=== PATIENT | female | born 1965 | race Caucasian/White ===

== ENCOUNTER 2023-01-07 06:19 | Outpatient (CLI) | payer BC ==
[~2023-01-07] VITALS: Ht 165.1 cm; Wt 166.5 kg
[2023-01-07] MEDS ORDERED: CALC1TAB PO (17:07)
[2023-01-07] MEDS ORDERED: INSU100V6 SQ (17:07)
[2023-01-07] MEDS ORDERED: ZALE10CA PO (17:07)
[2023-01-07] MEDS ORDERED: ASPI-808 PO (17:07)
[2023-01-07] MEDS ORDERED: MELA10CA2 PO (17:07)
[2023-01-07] MEDS ORDERED: KRIL500C PO (17:07)
[2023-01-07] MEDS ORDERED: ROPI12TA2 PO (17:07)
[2023-01-07] MEDS ORDERED: FEXO1TAB43 PO (17:07)
[2023-01-07] MEDS ORDERED: NF-LT10/20 PO (17:07)
[2023-01-07] MEDS ORDERED: EZET10TA17 PO (17:07)
[2023-01-07] MEDS ORDERED: SEMA2PEN SQ (17:07)
[2023-01-07] MEDS ORDERED: CRAN200C PO (17:07)
== END 2023-01-07 17:20 | disposition home or self-care (01) ==
LOC: PREOP 06:19
PROVIDERS: ATTEND Surgery
DX: Z01.818 Encounter for other preprocedural examination (principal)

== ENCOUNTER 2023-01-12 08:59 | Day surgery (SDC) | payer BC ==
[~2023-01-12] VITALS: Ht 165.1 cm; Wt 166.5 kg
[~2023-01-12 08:59] MED LIST: ASPI-808 PO; CALC1TAB PO; CRAN200C PO; EZET10TA17 PO; FEXO1TAB43 PO; INSU100V6 SQ; KRIL500C PO; MELA10CA2 PO; NF-LT10/20 PO; ROPI12TA2 PO; SEMA2PEN SQ; ZALE10CA PO
[2023-01-12] MEDS ORDERED: LACTATED RINGERS 1,000 ML IV STA (09:03)
[2023-01-12] MEDS ORDERED: HURRICAINE EXT TUBE (BENZOCAINE) XX PRN (09:15)
[2023-01-12 09:34] VITALS: BP 175/107
--- NOTE | 2023-01-12 10:15 | Progress Note-Pre Operative ---
Pre-Operative Progress Note Date of Available H&P: Dec 30, 2022 Date H&P Reviewed: Jan 12, 2023 Time H&P Reviewed: 10:12 History & Physical: H&P Reviewed, Patient Examed, No changes noted Pre-Operative Diagnosis: Dysphagia, Hx of Polyp KAIDEN CHAMBERS DO Jan 12, 2023 10:15
[2023-01-12] MEDS ORDERED: MIDAZOLAM INJ 2 MG/2 ML VIAL ONE (11:02)
[2023-01-12] MEDS ORDERED: PROPOFOL INJECTION 50 ML IV ONE (11:02)
[2023-01-12] MEDS ORDERED: KETAMINE 50 MG/5 ML SYRINGE ONE (11:02)
[2023-01-12 11:45] VITALS: BP 170/111
--- NOTE | 2023-01-12 11:45 | Progress Note-Post Operative ---
Post-Operative Progess Note Surgeon (s)/Cutter Tender (s) Surgeon KAIDEN CHAMBERS DO Cutter Tender: Connor Landrum, MSIII Pre-Operative Diagnosis Dysphagia, Hx of Polyp Post-Operative Diagnosis Gastritis Hiatal Hernia Polyps Diverticula int hemorrhoids Procedure & Operative Findings Date of Procedure 01/12/23 Procedure Performed/Findings EGD with biopsy Colonoscopy with snare Colonoscopy with cold biopsy PROCEDURE NOTE: After informed consent was obtained, the patient was brought to the endoscopy suite, placed in bed in left lateral decubitus position. She was administered IV sedation by the PERSONAL DRIVER who then monitored vitals the entire time, heart rate, blood pressure and pulse ox and the scope was inserted down the mouth through the esophagus into the stomach. On the way down, noted some mild esophagitis, took a picture, pushed into the stomach, pushed past the antrum into the duodenum. Duodenum looked good. Pulled back and did a biopsy of antrum, then retroflexed the scope, saw hiatal hernia, took a picture of this and then pulled the scope into the GE junction, took another picture of the hiatal hernia and then did a biopsy of the GE junction. Pushed the scope back into the stomach, suctioned all the air out of the stomach. At this point pulled the scope up the esophagus and out the mouth. Switched camera, switched gloves, went down below and started the colonoscopy. Pushed all the way to about 160 cm and pushed into the cecum, took a picture of appendiceal orifice and noted the ileocecal valve. Then slowly withdrew the scope insufflating to look circumferentially at the beth starting in the cecum, up the ascending colon to the hepatic flexure, then down the transverse colon to the splenic flexure and into the descending colon. Here I found a small flat polyp and elected to remove it with cold biopsy. Continued down into the sigmoid, where I found another flat polyp; removed this with cold biopsy. In the rectum I found three larger polyps and wanted to remove them completely, used snare to remove all of them. Finally, into the rectal vault and retroflexed the scope. Took a picture of the internal hemorrhoids. The patient tolerated the procedure and she recovered in the endoscopy suite. Recommended for repeat colonoscopy in 5 years Anesthesia Type IV sedaion by PERSONAL DRIVER Estimated Blood Loss Estimated blood loss (mL): scant Specimens/Packing Specimens Removed antral bx body of stomach bx GE jxn bx desc colon polyp sigmoid colon polyp rectal polyp x 3 KAIDEN CHAMBERS DO Jan 12, 2023 11:45
--- NOTE | 2023-01-12 11:46 | Endoscopy Discharge Instruct ---
Endo Procedure/Findings Findings 1.: Gastritis 2.: Hiatal Hernia 3.: Polyp 4.: Diverticulosis, Internal Hemorrhoids Discharge Instructions - Activity: You might feel a little sleepy until tomorrow. This is due to the medicine you received to relax you. Until tomorrow, you should: NOT drive a car, operate machinery or power tools. NOT drink any alcoholic beverages. NOT make any important decisions or sign importortant papers. Do not return to work until tomorrow, unless otherwise instructed. Resume previous activities tomorrow. Diet: Start by taking liquids. If you tolerate liquids, advance to solid food. 1.: EGD in 3 years 2.: Colonscopy in 5 years Notify Physician - If you experience excessive bleeding, unusual abdominal pain, fever, or chest pain, contact your doctor immediately. Follow-Up: Other Follow up in my office in one week KAIDEN CHAMBERS DO Jan 12, 2023 11:46
[2023-01-12 11:55] VITALS: BP 166/103
[2023-01-12 12:49] VITALS: BP 155/95
--- NOTE | 2023-01-12 12:49 | Anesthesia-General Post-Op ---
MAC Patient Condition Mental Status/LOC: Same as Preop Cardiovascular: Satisfactory Nausea/Vomiting: Absent Respiratory: Satisfactory Pain: Controlled Complications: Absent Post Op Complications Complications None Follow Up Care/Instructions Patient Instructions None needed. Anesthesiology Discharge Order Discharge Order Patient is doing well, no complaints, stable vital signs, no apparent adverse anesthesia problems. No complications reported per nursing. LORNA ESTEVEZ CRNA Jan 12, 2023 12:49
== END 2023-01-12 12:57 | disposition home or self-care (01) ==
LOC: ENDO 08:59
PROVIDERS: ATTEND Surgery
DX: Z12.11 Encounter for screening for malignant neoplasm of colon (principal); D12.4 Benign neoplasm of descending colon; K63.5 Polyp of colon; K62.1 Rectal polyp; K57.30 Diverticulosis of large intestine without perforation or abscess without bleeding; K64.8 Other hemorrhoids; K29.70 Gastritis, unspecified, without bleeding; K44.9 Diaphragmatic hernia without obstruction or gangrene; K20.90 Esophagitis, unspecified without bleeding; K31.89 Other diseases of stomach and duodenum; E66.01 Morbid (severe) obesity due to excess calories; E11.9 Type 2 diabetes mellitus without complications; Z79.4 Long term (current) use of insulin; Z79.85 Long-term (current) use of injectable non-insulin antidiabetic drugs; G47.33 Obstructive sleep apnea (adult) (pediatric); Z68.44 Body mass index [BMI] 60.0-69.9, adult